=== PATIENT | female | born 1970 | race Caucasian/White ===

== ENCOUNTER 2023-02-22 13:47 | Emergency (ER) | payer OTHER ==
[~2023-02-22] VITALS: Ht 162.6 cm; Wt 59.0 kg
[2023-02-22] MEDS ORDERED: IBUP-1955 PO (14:57)
[2023-02-22 15:41] VITALS: BP 120/76; TEMP 98.2; O2SAT 97
== END 2023-02-22 15:42 | disposition home or self-care (01) ==
LOC: ER 13:47
DX: S09.90XA Unspecified injury of head, initial encounter (principal); M25.551 Pain in right hip; M25.562 Pain in left knee; W01.0XXA Fall on same level from slipping, tripping and stumbling without subsequent striking against object, initial encounter; Y93.89 Activity, other specified; Y92.89 Other specified places as the place of occurrence of the external cause; Y99.8 Other external cause status